=== PATIENT | male | born 1935 | race Caucasian/White ===

== ENCOUNTER 2018-01-23 05:27 | Inpatient (IN) | payer OTHER ==
[2018-01-15 08:36] LABS: HEMOGLOBIN 14.1 gm/dL (14.0-18.0); MCH 30.5 pg (26.0-34.0); MCHC 33.5 g/dL (28.0-37.0); MCV 91.1 fL (80.0-100.0); RBC 4.61 mil/uL (4.50-6.00); RDW 14.5 % (10.5-14.5); WBC 6.3 thou/uL (4.0-11.0)
[2018-01-15 08:38] LABS: URINE BILIRUBIN NEGATIVE (Negative); URINE BLOOD NEGATIVE (Negative); URINE CLARITY CLEAR; URINE COLOR YELLOW; URINE GLUCOSE-RANDOM* NEGATIVE (Negative); URINE KETONES NEGATIVE (Negative); URINE LEUKOCYTES-REFLEX NEGATIVE (Negative); URINE NITRITE-REFLEX NEGATIVE (Negative); URINE PROTEIN (DIPSTICK) NEGATIVE (Negative); URINE SPECIFIC GRAVITY >= 1.030 (1.005-1.035); URINE UROBILINOGEN 0.2 E.U./dl (0.2-1.0)
[2018-01-15 08:47] LABS: ALBUMIN 3.7 g/dL (3.4-5.0); CALCIUM 9.1 mg/dL (8.5-10.1); CREATININE 1.3 mg/dL (0.7-1.3)
[2018-01-15 08:54] LABS: PROTIME 10.7 Seconds (9.3-11.4)
[2018-01-23] VITALS (8 sets, daily range): BP systolic 103–126; BP diastolic 64–77
[~2018-01-23] VITALS: Ht 188 cm; Wt 99.8 kg
--- NOTE | ~2018-01-23 | O ---
[facility] [place] [address] OPERATIVE REPORT Name: SHAHBAZ HUA Room #: 150-3 ADM IN M.R.#: [id number] Admission: 01/23/18 Attend Phys: Yan Avalos MD Discharge: Date of : 37 Report #: [id number] THIS REPORT FOR: //name// CC: Gerard Avalos DATE OF SERVICE: 01/23/2018 PREOPERATIVE DIAGNOSIS: Left knee osteoarthritis. POSTOPERATIVE DIAGNOSIS: Left knee osteoarthritis. PROCEDURE: Left total knee arthroplasty using Navio robotic railways assistant. SURGEON: Yan Avalos MD. DEVELOPMENT PROFESSIONAL: Marima Maharaj PA-C. INDICATIONS FOR DEVELOPMENT PROFESSIONAL: Throughout the case, extensive retraction and manipulation of the knee was required. This was afforded to me by my railways assistant. ANESTHESIA: LMA with adductor canal block. IMPLANTS: Mccarthy and Nephew size 7 Legion cobalt chrome posterior stabilized femur, a size 7 tibia, size 35 patella and a size 11 polyethylene. TOURNIQUET TIME: 34 minutes. ESTIMATED BLOOD LOSS: 50 mL. COMPLICATIONS: None. SPECIMENS: None. CONDITION UPON LEAVING THE OPERATING ROOM: Stable. INDICATION FOR PROCEDURE: The patient is an 83-year-old gentleman with severe left knee osteoarthritis. He failed conservative treatment for this and after discussion with he and his family, they elected for left total knee arthroplasty. DESCRIPTION OF PROCEDURE: Risks, benefits, alternatives, complications were discussed in detail with the patient including but not limited to risk of anesthesia, risk of damage to nerves, arteries, blood vessels, risk for infection, bleeding, risk for continued knee pain and need for reoperation. Informed consent was obtained from the patient. Left knee was appropriately [facility] [address] [place] [address] OPERATIVE REPORT Name: SHAHBAZ HUA Room #: 150-3 ADM IN M.R.#: [id number] Admission: 01/23/18 Attend Phys: Yan Avalos MD Discharge: Date of : 37 Report #: [id number] marked in the preoperative holding area. IV clindamycin was given for preoperative antibiotics. Adductor canal block placed by Anesthesia. He was brought to the operating room and placed in the supine position on the operating room table. LMA anesthesia was induced without complication. A tourniquet was placed on the left thigh. Left lower extremity was prepped and draped in normal sterile fashion. Timeout was performed properly identifying the patient and procedure as well as the instrumentation and implants. All in the operating room were in agreement. Left lower extremity was exsanguinated, tourniquet was inflated. Tourniquet time was 84 minutes. Standard midline approach to the knee was made with 10 blade through the skin. Dissection was taken down sharply to the fascia and deep flaps were developed medially and laterally. Fresh 10 blade was used to make a medial parapatellar arthrotomy and the knee was inspected and there was extensive tricompartmental osteoarthritic change. Patella was everted, knee was flexed. The ACL and PCL were removed sharply. Osteophytes were removed with a rongeur. Reference pins were then placed in the tibia and the femur and the optical sensors were placed. The knee was then mapped digitally using the Navio robotic railways assistant and femoral component, tibial component were then planned using the Navio. Distal femoral resection was then made with the Navio carmine and 4-in-1 cutting block for a size 7 femur was placed. Anterior, posterior and chamfer cuts were made. Navio was used to drill the reference holes for the tibia and tibial resection guide was pinned in place. Tibial resection was made. Posterior osteophytes were removed from the femur and the tibia was sized, found to be a size 7. A size 7 tibial trial was placed and a size 7 femoral trial was placed and the box cut was made. This trialed with a size 10 polyethylene and found to have good balance in flexion and extension both medially and laterally both manually as well as digitally. The 9 mm was taken off posterior surface of the patella and a size 35 patellar button trial was placed. Knee was taken through range of motion, found to be stable, found to have good balance in flexion and extension both medially and laterally. Trial components were removed. Bony ends were thoroughly irrigated with normal saline. A final size 7 tibia, size 7 Legion cobalt chrome posterior stabilized femur and a size 35 patella were cemented in place using standard cementation techniques. While the cement cured, a periarticular injection consisting of morphine, ropivacaine, epinephrine and Toradol was placed around the knee joint. After the cement cured, the tourniquet was deflated. Hemostasis was obtained with Bovie cautery. Final size 11 polyethylene was placed. This trial was felt to have the best fit. A gram of vancomycin was placed deep in the knee joint. Fascia was closed with 0 Vicryl, skin was closed with 2-0 Vicryl and 3-0 Monocryl. Dermabond and a JACQUI dressing was applied. The patient tolerated this procedure well and went to recovery room under care of anesthesia postoperatively. By: [id number] Yan Avalos MD /nt
[~2018-01-23 05:27] MED LIST: AVAPRO300 MG PO; CARDIZEM CD120 MG PO; CELEBREX 200 M200 M1 PO; CENTRUM SILVER1 EAC2 PO; CLARITIN10 MG PO; CRESTOR20 MG PO; ELIQUIS5 MG PO; FLECAINIDE ACET50 M1 PO; FOLIC ACID 40400 MC1 PO; GLUCOSAMINE &1 EACH PO; HYDROCHLOROTH12.5 M1 PO; LUTEIN 15 MG S1 EACH PO; PEPCID20 MG PO; PROTONIX40 M1 PO; SYNTHROID75 MCG PO; TRAMADOL 50 MG50 MG PO; VIAGRA25 MG PO; VITAMIN D2000 UNIT PO
[2018-01-24 00:24] VITALS: BP 98/63
[2018-01-24 04:53] VITALS: BP 102/58
[2018-01-24 05:22] LABS: HEMATOCRIT 35.2 % (42.0-52.0); HEMOGLOBIN 11.8 gm/dL (14.0-18.0); MCH 30.8 pg (26.0-34.0); MCHC 33.5 g/dL (28.0-37.0); MCV 91.9 fL (80.0-100.0); RBC 3.82 mil/uL (4.50-6.00); RDW 14.6 % (10.5-14.5); WBC 12.3 thou/uL (4.0-11.0)
[2018-01-24 07:39] VITALS: BP 110/63
[2018-01-24 13:26] VITALS: BP 110/63
== END 2018-01-24 14:04 | disposition home or self-care (01) | DRG 470 ==
LOC: 4N 05:27 → TBA 05:27 → PRE 05:40 → 4N 13:40 → PRE 15:11 → ENTRNSPT 01-24 13:56 → EDTRNSPTSTS 01-24 13:58 → 4N 01-24 14:04
PROVIDERS: Orthopaedic Surgery
PROC: 0SRD0J9 Replacement of Left Knee Joint with Synthetic Substitute, Cemented, Open Approach (ICD-10-PCS; principal; 2018-01-23)
DX: M17.12 Unilateral primary osteoarthritis, left knee (principal)
CPT/HCPCS: 10790; 50010; 50101; 50415; 50954; 51130; 51225; 51771; 53078; 54118; 56527; 56528; 57095; 57103; 57109; 57110; 57113; 57127; 62110; 62900; 64043; 65060; 70005

== ENCOUNTER 2019-07-29 05:42 | Inpatient (IN) | payer OTHER ==
[2019-07-17 12:14] LABS: HEMATOCRIT 43.9 % (42.0-52.0); HEMOGLOBIN 14.6 gm/dL (14.0-18.0); MCHC 33.3 g/dL (28.0-37.0); MCV 93.2 fL (80.0-100.0); RBC 4.71 mil/uL (4.50-6.00); RDW 13.7 % (10.5-14.5); URINE BILIRUBIN NEGATIVE (Negative); URINE BLOOD NEGATIVE (Negative); URINE CLARITY CLEAR; URINE COLOR YELLOW; URINE GLUCOSE-RANDOM* NEGATIVE (Negative); URINE KETONES NEGATIVE (Negative); URINE LEUKOCYTES-REFLEX NEGATIVE (Negative); URINE NITRITE-REFLEX NEGATIVE (Negative); URINE PROTEIN (DIPSTICK) NEGATIVE (Negative); URINE SPECIFIC GRAVITY 1.025 (1.005-1.035); URINE UROBILINOGEN 0.2 E.U./dl (0.2-1.0); WBC 6.2 thou/uL (4.0-11.0)
[2019-07-17 12:26] LABS: PROTIME 10.7 Seconds (9.3-11.4)
[2019-07-17 12:30] LABS: ALBUMIN 3.9 g/dL (3.4-5.0); CALCIUM 9.2 mg/dL (8.5-10.1); CREATININE 1.2 mg/dL (0.7-1.3); POTASSIUM 3.9 mmol/L (3.5-5.1)
[~2019-07-29] VITALS: Ht 182.9 cm; Wt 104.3 kg
[2019-07-29 07:09] VITALS: BP 123/66
--- NOTE | 2019-07-29 08:15 | EKG ---
[address] [address] ELECTROCARDIOGRAM REPORT Name: SHAHBAZ HUA Room #: 150-2 ADM IN M.R.#: [id number] Admission: 07/29/19 Attend Phys: Yan Avalos MD Discharge: Date of : 37 Report #: [id number] THIS REPORT FOR: //name// [facility] Test Date: 2019-07-29 Test Time: 06:20:44 Pat Name: SHAHBAZ HUA Department: Room: 150 2 Gender: M Elementary Tutor: vickie : 1935 Requested By: Yan Avalos Order Number: [id number] MD: Manohar Hugo Measurements Intervals [place] Rate: 68 P: -87 NV: 153 QRS: -10 QRSD: 130 T: -3 QT: 420 QTc: 447 Interpretive Statements Sinus or ectopic atrial rhythm Probable left ventricular hypertrophy No previous ECG available for comparison Electronically Signed On 07-29-2019 8:15:11 HEALTHCARE ARCHITECT by Manohar Hugo [email or web address] <ELECTRONICALLY SIGNED> By: Manohar Hugo MD 07/29/1915 9 9 Manohar Hugo MD /ELOISA
[2019-07-29 13:39] VITALS: BP 109/61
[2019-07-29 13:40] VITALS: BP 119/97
--- NOTE | 2019-07-29 15:15 | NUR ---
INITIAL ASSESSMENT: Pt evaluated for d/c planning needs. Reviewed chart and spoke with nurse, pt and spouse. Pt is alert and oriented. Pt lives in house with spouse and was independent with ADL's prior to admission. Pt remains active in the community and regularly golfs. Pt has walker, crutches and cane at home. Pt had previous knee surgeries and had home health, and then outpatient PT. Pt plans on returning home on d/c from hospital. Pt has outpatient PT arranged for Monday. Will remain available to assist as needed.
[2019-07-29 19:45] VITALS: BP 93/56
--- NOTE | 2019-07-29 19:51 | NUR ---
PT WAS UP WALKING WITH THERAPY. PT HAS GOOD APPETITE AND IS ON ROOM AIRR. HAS IV FLUIDS INFUSING AND IV ABT THAT NIGHTS TO START. IS NOT HERE FROM PHARMACY. PT CONT OF B&b. PLEASANT AND COOPERATIVE WITH CARE.
--- NOTE | 2019-07-30 04:08 | NUR ---
ASSUMED PT CARE @1900. PATIENTS DTR IS A DR IN [place], WANTED TO TALK W/ NURSE ABOUT PAIN MEDS. PT IS REFUSING MORPHINE, JUST WANTS HYDROCODONE Q4. GIVEN TWICE THIS EVENING. APIXABAN HELD DUE TO PHARM NOTE TO START IN AM. BP MED HELD. FINISHED 2 BAGS OF ANTIBIOTICS. PT RESTING COMFORTABLY.
[2019-07-30 04:20] VITALS: BP 104/60
[2019-07-30 07:02] LABS: HEMATOCRIT 37.4 % (42.0-52.0); HEMOGLOBIN 12.3 gm/dL (14.0-18.0); MCH 30.8 pg (26.0-34.0); MCV 93.6 fL (80.0-100.0); RDW 13.5 % (10.5-14.5); WBC 9.9 thou/uL (4.0-11.0)
[2019-07-30 07:35] VITALS: BP 109/62
--- NOTE | 2019-07-30 10:00 | O ---
[facility] [place] [address] OPERATIVE REPORT Name: SHAHBAZ HUA Room #: 434-P ADM IN M.R.#: [id number] Admission: 07/29/19 Attend Phys: Yan Avalos MD Discharge: Date of : 37 Report #: [id number] THIS REPORT FOR: //name// CC: Gerard Avalos DATE OF SERVICE: 07/29/2019 PREOPERATIVE DIAGNOSIS: Right knee osteoarthritis. POSTOPERATIVE DIAGNOSIS: Right knee osteoarthritis. PROCEDURE: Right total knee arthroplasty using Navio robotic assistance. SURGEON: Yan Avalos MD. HELP DESK ADMINISTRATOR: Mariam Maharaj PA-C. INDICATIONS FOR HELP DESK ADMINISTRATOR: Throughout the case, extensive retraction and manipulation of the knee was required. This was afforded to me by my campus administrative assistant. ANESTHESIA: LMA with an adductor canal block. IMPLANTS: Mccarthy and Nephew size 6 Legion cobalt chrome posterior stabilized femur, size 6 tibia, size 9 polyethylene and size 35 patella. TOURNIQUET TIME: 62 minutes. ESTIMATED BLOOD LOSS: 25 mL. COMPLICATIONS: None. SPECIMENS: None. CONDITION UPON LEAVING THE OPERATING ROOM: Stable. INDICATIONS FOR PROCEDURE: The patient is an 84-year-old gentleman with right knee osteoarthritis. He had failed conservative measures for this and after discussion with him, he elected for right total knee arthroplasty. DESCRIPTION OF PROCEDURE: Risks, benefits, alternatives, complications were discussed in detail with the patient including, but not limited to risk of anesthesia, risk of damage to nerves, arteries, blood vessels, risk for infection, bleeding, risk for continued knee pain and need for reoperation. Informed consent was obtained from the patient. Right knee was appropriately marked in the preoperative holding area. IV Ancef was given for preoperative [facility] [address] [place] [address] OPERATIVE REPORT Name: SHAHBAZ HUA Room #: 434-P [facility] IN M.R.#: [id number] Admission: 07/29/19 Attend Phys: Yan Avalos MD Discharge: Date of : 37 Report #: [id number] antibiotics. Adductor canal block was placed by Anesthesia, was brought to the operating room and placed in supine position on operating room table. LMA anesthesia was induced without complication. Tourniquet was placed on the right thigh. Right lower extremity was prepped and draped in normal sterile fashion. Timeout was performed properly identifying the patient and procedure as well as the instrumentation and implants. All in the operating room were in agreement. Right lower extremity was exsanguinated, tourniquet was inflated. Tourniquet time 62 minutes. Standard midline approach to the knee was made with 10-blade through the skin. Dissection was taken down sharply to the fascia and deep flaps were developed medially and laterally. Fresh 10-blade was used to make a medial parapatellar arthrotomy and the knee was inspected, there was severe tricompartmental osteoarthritis. ACL and PCL were removed sharply. Reference pins were placed in the femur and the tibia and the knee was then digitally mapped using the eigital system. Intraoperative plan was made. We sized the size 6 femur with a size 6 tibia and a size 11 spacer. After acceptance of the intraoperative plan, the distal femoral cut was made with a Navio bur. The 4-in-1 cutting block was placed. Anterior, posterior and chamfer cuts were made. Attention was then turned to the tibia. The remainder of the menisci removed with Bovie cautery. Tibial resection guide was pinned in place using the Navio for placement and positioning and the tibial resection was made with a saw. Flexion and extension gaps were checked and found to be tight medially in flexion as well as in extension and a limited medial release was performed using the pie crust technique. This balanced the knee well with a size 9 spacer. After this, the tibia was sized, found to be a size 6. A size 6 tibial trial was placed, pinned and punched. A size 6 femoral trial was placed and the box cut was made. This was then trialed with a size 9 polyethylene. Knee was taken through range of motion, found to be stable, found to have good balance in flexion and extension both medially and laterally. A 9 mm was resected from the posterior surface of the patella and a size 35 patellar trial button was placed. Knee was taken through range of motion, found to be stable, found to have good patellar tracking. After this, trial components were removed. Bony ends were thoroughly irrigated with normal saline. A final size 6 tibia, size 6 Legion cobalt chrome posterior stabilized femur and a size 35 patella were cemented in place using standard cementation techniques. While the cement cured, a periarticular injection consisting of morphine, ropivacaine, epinephrine and Toradol was placed around the knee joint capsule. After the cement cured, the tourniquet was deflated. Hemostasis was obtained with Bovie cautery. A final size 9 polyethylene was placed. A gram of vancomycin was placed deep in the joint. Fascia was closed with 0 Vicryl, skin was closed with 2-0 Vicryl and skin staple and a JACQUI dressing was applied. The patient tolerated this procedure well and went to recovery room under care of anesthesia postoperatively. <ELECTRONICALLY SIGNED> By: Yan Avalos MD 07/30/19 1000 [id number] [id number] Yan Avalos MD /nt
--- NOTE | 2019-07-30 10:47 | NUR ---
PT UP AMBULATING THE HALLS WITH THERAPY ALSO DID THE STAIRS. PT W/O PAIN. PT THERAPIST TOMÁS STATES IS OKAY TO DISCHARGE PER THERAPY ASSESSMENT
[2019-07-30 13:07] VITALS: BP 109/62
[2019-07-30 15:26] VITALS: BP 109/62
--- NOTE | 2019-07-30 16:44 | NUR ---
DISCHARGE PAPERS GONE OVER WITH PATIENT SIGNED AND COPY IN CHART. RX'S GIVEN TO PATIENT. IV ACSESS DCD, ALL BELONGINGS PACKED AND SENT WITH PATIENT. NO PAIN OR RESP DISTRESS AT DISCHARGE.
== END 2019-07-30 16:24 | disposition home or self-care (01) | DRG 470 ==
LOC: 4S 05:42 → TBA 05:42 → PRE 08:08 → 4S 11:13 → PRE 11:35 → TBA 15:28 → ENTRNSPT 07-30 15:49 → 4S 07-30 16:24
PROVIDERS: ADMIT Orthopaedic Surgery
PROC: 8E0Y0CZ Robotic Assisted Procedure of Lower Extremity, Open Approach (ICD-10-PCS; principal; 2019-07-29)
PROC: 0SRC0J9 Replacement of Right Knee Joint with Synthetic Substitute, Cemented, Open Approach (ICD-10-PCS; principal; 2019-07-29)
DX: M17.11 Unilateral primary osteoarthritis, right knee (principal); Z79.899 Other long term (current) drug therapy; Z88.6 Allergy status to analgesic agent; Z88.1 Allergy status to other antibiotic agents; Z88.8 Allergy status to other drugs, medicaments and biological substances
CPT/HCPCS: 10102; 50010; 50101; 50415; 50954; 51130; 51225; 51320; 51412; 52001; 52282; 53000; 53364; 54118; 56527; 56528; 57095; 57103; 57110; 57127; 57180; 62110; 62900; 64042; 70005

== ENCOUNTER 2021-10-04 11:45 | Observation (INO) | payer OTHER ==
[~2021-10-04] VITALS: Ht 182.9 cm; Wt 102.1 kg
[2021-10-04 13:35] VITALS: BP 133/69
[2021-10-04 13:37] LABS: HEMATOCRIT 39.5 % (42.0-52.0); HEMOGLOBIN 13.1 gm/dL (14.0-18.0); MCH 31.2 pg (26.0-34.0); MCHC 33.3 g/dL (28.0-37.0); MCV 93.9 fL (80.0-100.0); RBC 4.21 mil/uL (4.50-6.00); RDW 13.6 % (10.5-14.5); WBC 8.1 thou/uL (4.0-11.0)
[2021-10-04 14:00] LABS: CALCIUM 9.2 mg/dL (8.5-10.1); CREATININE 1.4 mg/dL (0.7-1.3); POTASSIUM 4.4 mmol/L (3.5-5.1)
--- NOTE | 2021-10-04 22:13 | NUR ---
PT ADMITTED TO UNIT AT APPROXIMATELY 1800. PT IS A/O X4 AND IS UP WITH ASSISTANCE FOLLOWING PROCEDURE. CURRENTLY ON 2 LITERS O2 PER NC. MEDSURG STATUS NO TELEMETRY. DENIES C/O NAUSEA OR DISCOMFORT. VSS. DRSG TO KNEE IS C/D/I. HEMOVAC IN PLACE. ADMISSION IS COMPLETE. PT HAS BEEN EDUCATED ON USE OF CALL LIGHT AND BED CONTROLS. FALL PRECAUTIONS IN PLACE, CALL LIGHT IS WITHIN REACH. ALL SCHEDULED MEDICATIONS AT HS GIVEN WHOLE WITH WATER. PT HAS CALLED OUT APPROPRIATELY FOR ASSISTANCE SINCE ARRIVAL.
[2021-10-04 22:16] VITALS: BP 122/78
--- NOTE | 2021-10-05 03:10 | NUR ---
PT IS A/O X4 AND IS UP WITH ASSISTANCE. HAS NOT GOTTEN UP AFTER PROCEDURE HOWEVER. AWAITING PT EVALUATION. C/O PAIN TO RIGHT KNEE. PRN PAIN MEDICATION GIVEN DIRECTED. VSS. MEDICATION GIVEN PER MAR. FALL PRECAUTIONS IN PLACE, CALL LIGHT IS WITHIN REACH.
[2021-10-05 06:09] LABS: ABSOLUTE NEUTROPHILS 6.1 thou/uL (1.4-8.2); BASOPHILS 0.1 % (0.0-2.0); HEMATOCRIT 32.7 % (42.0-52.0); LYMPHOCYTES 11.1 % (24.0-44.0); MCH 31.6 pg (26.0-34.0); MCHC 33.9 g/dL (28.0-37.0); MCV 93.2 fL (80.0-100.0); MONOCYTES 10.5 % (1.0-8.0); PLATELET COUNT 309 thou/uL (150-400); POLYS 78.3 % (36.0-66.0); RBC 3.51 mil/uL (4.50-6.00); RDW 13.4 % (10.5-14.5); WBC 7.7 thou/uL (4.0-11.0)
[2021-10-05 06:17] LABS: HEMOGLOBIN 11.1 gm/dL (14.0-18.0)
[2021-10-05 06:35] LABS: ALBUMIN 2.3 g/dL (3.4-5.0); CREATININE 1.1 mg/dL (0.7-1.3); POTASSIUM 4.5 mmol/L (3.5-5.1); TOTAL BILIRUBIN 0.6 mg/dL (0.2-1.0); TOTAL PROTEIN 5.8 g/dL (6.4-8.2)
[2021-10-05 08:10] VITALS: BP 108/68
--- NOTE | 2021-10-05 09:29 | NUR ---
ASSUMED PT CARE THIS AM. PT IS ALERT & ORIENTED X4. PT HAS IV SITE ON R WRIST RUNNING D5 1/2 NS @100ML/HR. PT HAS BILATERAL NELL HOSES, POLAR PACK, SCD. PT IS ON ROOM AIR. EDUCATED PT ABOUT TAKING NARCOTICS WITH FOOD. GIVEN SCHEDULED MEDICATIONS THIS AM WITHOUT DIFFICULTIES. PT WILL BE WORKING WITH PHYSICAL THERAPY TODAY. PT ON THE BED, BED ON THE LOWEST POSITION, SIDE RAILS UP, CALL LIGHT WITHIN REACH. WILL FOLLOW POC.
--- NOTE | 2021-10-05 12:02 | NUR ---
Met with patient and at bedside. patient admits with right knee infection. he reports right TKA approx 3 years ago. he was doing fine until pain and f/u with ortho on outpatient basis. Patient and live in independent home. Patient has a walker as needed. he reports independent with adls. Discussed home infusion, home health care and out patient infusion. Discussed process of authorization and benefits. Patient and spouse with no preference for home health agency or infusion company. faxed referral to [facility] infusion and [email or web address] accepting. Infusion company to check benefits.
--- NOTE | 2021-10-05 15:07 | O ---
[facility] [place] [address] OPERATIVE REPORT Name: SHAHBAZ HUA Room #: 436-P [facility] Rafaela Duran#: [id number] Admission: 10/04/21 Attend Phys: Yan Avalos MD Discharge: Date of : 37 Report #: [id number] THIS REPORT FOR: cc: Gerard Reyes MD,Gerard Avalos,Yan Snow MD ~ DATE OF SERVICE: 10/04/2021 PREOPERATIVE DIAGNOSIS: Septic, right total knee arthroplasty. POSTOPERATIVE DIAGNOSIS: Septic, right total knee arthroplasty. PROCEDURE: Open irrigation and debridement, right total knee arthroplasty with polyethylene exchange. SURGEON: Yan Avalos MD NURSE ADVISOR: Mariam Maharaj PA-C. INDICATION FOR NURSE ADVISOR: Throughout the case, extensive retraction, manipulation of the knee was required. This is afforded to me by my assistant manager quality management. ANESTHESIA: LMA. TOURNIQUET TIME: 30 minutes. ESTIMATED BLOOD LOSS: 25 mL SPECIMENS: Cultures were taken and sent x 2. CONDITION UPON LEAVING THE OR: Stable. INDICATIONS FOR PROCEDURE: The patient is an 86-year-old male who is approximately 3 years out from a right total knee arthroplasty. He has done overall well with this knee; however, about 9 days ago, he experienced acute swelling. This was about a Monday. He came to the ER to our office the following 09/27/2021 and had an aspiration performed of his knee. Cultures of this were negative, although his synovium analysis was suspicious for infection. He then returned to the office on 10/01/2021 and a repeat aspiration was performed. This demonstrated bloody cloudy fluid and cultures of this were also sent. At that point, we had a discussion for the need for debridement and irrigation with washing out of the knee with possible polyethylene exchange. He was placed on the schedule for this afternoon to perform this. He does give a recent history of chronic drainage from a wisdom tooth that has a filling it, that possibly could be the source of the infection. No other infectious exposures noted. After discussion with he and his as [address] [address] OPERATIVE REPORT Name: JAVIDSHAHBAZ LLOYDVYN Room #: 436-P [facility] MChato#: [id number] Admission: 10/04/21 Attend Phys: Yan Avalos MD Discharge: Date of : 37 Report #: [id number] well as his daughter , who is an executive vp, we decided for open irrigation and debridement with polyethylene exchange of the right total knee arthroplasty. DESCRIPTION OF PROCEDURE: Risks, benefits, alternatives, and complications were discussed in detail with the patient including but not limited to risk of anesthesia, risk of damage to nerves, arteries, blood vessels, risk for infection, bleeding, continued infection, need for reoperation. Informed consent was obtained from the patient. Right knee was appropriately marked in the preoperative holding area. IV Ancef was given for preoperative antibiotics. He was brought to the operating room and placed in the supine position on the operating room table. LMA anesthesia was induced without complication. Tourniquet was placed on the right thigh. Right lower extremity was prepped and draped in normal sterile fashion. Timeout was performed properly identifying the patient and procedure as well as the instrumentation. All in the operating room in agreement. Right lower extremity was elevated, tourniquet was inflated. Tourniquet time was 30 minutes. Previous scar was used and this was opened with a 10 blade through the skin. Dissection was taken down sharply to the fascia and deep flaps were developed medially and laterally. Fresh 10 blade was used to make a medial parapatellar arthrotomy and upon entering the joint, there was noted to be a large amount of purulent joint fluid within the joint itself. Cultures of this were taken x 2 and sent. IV vancomycin was then given for intraoperative antibiotics at this point. After this, the synovium was debrided with the rongeur, polyethylene was removed, and the knee was thoroughly irrigated with normal saline under pulse lavage. Tourniquet was deflated. Hemostasis was obtained with Bovie cautery. A new size polyethylene was then placed. The deep drain was placed. The fascia was closed with 0 Vicryl. Skin was closed with 2-0 Vicryl, skin staple and a JACQUI dressing was applied. The patient tolerated this procedure well and went to recovery room under care of anesthesia postoperatively. <ELECTRONICALLY SIGNED> By: Yan Avalos MD 10/05/21 1507 1550 1610 Yan Avalos MD /nt
[2021-10-05 16:33] VITALS: BP 127/79
[2021-10-05 19:19] VITALS: BP 124/67
--- NOTE | 2021-10-06 01:52 | NUR ---
PT REQUESTED FOR GABAPENTIN TO BE ADDED TO EMAR. CONTACTED SURGEON SKIP LOADER. ORDERS GIVEN. HEMOVAC SITE DRSG C/D/I WITH NO DRAINAGE. DRSG TO KNEE. C/D/I. MEDICATIONS GIVEN PER OCT. PT CALLS OUT APPROPRIATELY FOR ASSISTANCE AND IS PROGRESSING TOWARDS PLAN OF CARE DC GOALS.
[2021-10-06 03:12] LABS: ABSOLUTE NEUTROPHILS 5.4 thou/uL (1.4-8.2); BASOPHILS 0.3 % (0.0-2.0); EOSINOPHILS 1.6 % (0.0-3.0); HEMATOCRIT 31.7 % (42.0-52.0); MCH 32.3 pg (26.0-34.0); MCHC 34.6 g/dL (28.0-37.0); MCV 93.4 fL (80.0-100.0); MONOCYTES 12.2 % (1.0-8.0); PLATELET COUNT 319 thou/uL (150-400); POLYS 68.9 % (36.0-66.0); RBC 3.39 mil/uL (4.50-6.00); RDW 13.5 % (10.5-14.5); WBC 7.9 thou/uL (4.0-11.0)
[2021-10-06 04:21] VITALS: BP 108/53
[2021-10-06 04:52] LABS: CALCIUM 7.6 mg/dL (8.5-10.1); CREATININE 1.1 mg/dL (0.7-1.3); MAGNESIUM 2.2 mg/dL (1.8-2.4); POTASSIUM 4.2 mmol/L (3.5-5.1)
[2021-10-06 07:26] VITALS: BP 117/52
--- NOTE | 2021-10-06 09:36 | NUR ---
ASSUMED PT CARE THIS AM. PT IS ALERT & ORIENTED X4. PT HAS IV SITE ON R WRIST SALINE LOCKED. PT IS UP WITH ASSIST X1 WITH WALKER AND GAITBELT. PT HAS BILATERAL NELL HOSES, POLAR PACK AND SCD. PT IS ON ROOM AIR. PT REFUSED MORPHINE AND GIVEN TRAMADOL FOR PAIN PER PT REQUEST. PT TOLERATED DIET AND MEDICATION WELL. WILL FOLLOW POC.
--- NOTE | 2021-10-06 16:42 | NUR ---
Spoke with [facility] infusion patient will pay $15 daily for supplies. Total cost with vancomycin is &205 weekly. Updated patient, he wants to inquire into outpatient infusion. Discussed hospitals here and Dr Ulloa also goes to [facility]. Patient requested inquiry to [facility]. Sp with Courtney [phone] in infusion clinic. She reports they do not check benefit or do prior auth. Sp with Serafin in financial office [phone] she reports phys office does prior auth. Gave her patients insurance information and could be copay of $295 per day or $25 per day. Called insruance and discussed. Insurance reports depending on billing either medicare B or D. Cannot speak to how [facility] does their billing. Prior auth for infusion would need to come from Dr Ulloa office for [facility] outpatient. Sp with patient and alerted of above. Discussed even if lowest amount if $25 a day would be $175 weekly. Patient reports for casemgt to inquire into [facility]. Discussed with patient Dr Ulloa does not go to [facility] to my knowledge. cultures returned with staph lugdunensis. Updated Dr Ulloa.
[2021-10-06 16:43] VITALS: BP 107/61
[2021-10-06 20:15] VITALS: BP 99/51
--- NOTE | 2021-10-07 04:27 | NUR ---
VVS. PT UP TO BATHROOM WITH SB ASSIST AND WALKER. MINIMAL PAIN THIS SHIFT. PT INFORMED THIS RN HE WILL NOT BE GOING HOME WITH IV ANTIBIOTICS- EDUCATION PROVIDED. MEDS GIVEN PER ORDERS-SEE CHARTIGN FOR FURTHER DETAILS
[2021-10-07 07:31] VITALS: BP 113/68
--- NOTE | 2021-10-07 08:36 | NUR ---
ASSUMED PT CARE THIS AM. GIVEN SCHEDULED MEDICATIONS THIS AM WITHOUT DIFFICULTIES. PT HAS NELL BARON KNEE HIGH, POLAR PACK, JACQUI DRESSING, SCD. LAST BM WAS YESTERDAY. CONSENT SIGNED FOR PICC LINE THIS AM. AWAITING FOR IV TEAM TO PLACE PICC LINE TODAY. WILL FOLLOW POC.
--- NOTE | 2021-10-07 10:41 | NUR ---
A LEFT PICC WAS PLACED PER HOSPITAL POLICY AFTER A BEDSIDE TIMEOUT WAS COMPLETED. THE LINE WAS TRIMMED TO 50CM AND ADVANCED WITHOUT DIFFICULTY. THE LINE WAS COMFIRMED USING 3CG AT 0CM EXTERNAL. THE LINE WAS RELEASED FOR USE
--- NOTE | 2021-10-07 11:00 | NUR ---
Have given patient information regarding outpatient infusion or home infusion. He has not made a desicion yet on option. at bedside. Discussed need to arrange and coordinate. Offered skilled he declined.
[2021-10-07 16:44] VITALS: BP 148/75
[2021-10-07 19:39] VITALS: BP 138/70
--- NOTE | 2021-10-08 07:40 | NUR ---
RECEIVED CARE OF THIS PATIENT AT 1900. PATIENT ALERT AND ORIENTED X4. UP WITH SBA. HAS DL PICC IN [facility]. BOTH PORTS FLUSH AND DRAW GOOD. HAS DRESSING ON R KNEE WITH TEDS, SCDS, AND POLAR ICE SLEPT OFF AND ON DURING NIGHT. C/O LITTLE PAIN. SCHEDULED PAIN MED GIVEN.
[2021-10-08 07:50] VITALS: BP 143/72
[2021-10-08 10:21] VITALS: BP 143/72
[2021-10-08] MEDS ORDERED: VANCOMYCIN1 GM/2002 IV (10:31)
--- NOTE | 2021-10-08 12:56 | NUR ---
met with patient this am who reports plan to dc home today. He reports he wants to do home infusion. Sp with Keila with [facility] who came to do teaching which went well. Faxed orders to [facility] infusion and [facility] home health care. They rec orders. Sp with dtr Tabitha to alert teaching for home infusion today with planned discharge today. no further needs
--- NOTE | 2021-10-08 14:30 | NUR ---
Patient discharged today after IV Ancef. Patient was provided written and verbal education for iv infusions by both nurse and this nurse. Patient voiced no needs at time of discharge
== END 2021-10-08 13:55 | disposition home or self-care (01) ==
LOC: OR 11:45 → TBA 16:16 → 4S 16:16 → OR 17:47 → 4S 10-08 13:55
PROVIDERS: Anesthesiology; Nurse Practitioner; Specialist; ADMIT Orthopaedic Surgery; ATTEND Orthopaedic Surgery
DX: T84.53XA Infection and inflammatory reaction due to internal right knee prosthesis, initial encounter (principal); Z20.822 Contact with and (suspected) exposure to COVID-19; E43 Unspecified severe protein-calorie malnutrition; N17.9 Acute kidney failure, unspecified; D62 Acute posthemorrhagic anemia; M00.861 Arthritis due to other bacteria, right knee; I10 Essential (primary) hypertension; E03.9 Hypothyroidism, unspecified; I48.91 Unspecified atrial fibrillation; E78.5 Hyperlipidemia, unspecified; Y92.89 Other specified places as the place of occurrence of the external cause; Z79.899 Other long term (current) drug therapy; Z79.01 Long term (current) use of anticoagulants
CPT/HCPCS: 10102; 27000; 50010; 50101; 50415; 50954; 51412; 53078; 56528; 57095; 57103; 57116; 57180; 59024; 59177; 62110; 62900; 70005